=== PATIENT | male | born 1985 | race Caucasian/White ===

== ENCOUNTER → 2017-08-26 | Outpatient (CLI) | payer OTHER | END | disposition home or self-care (01) | LOC: GMA 17:50 | PROVIDERS: ATTEND Nurse Practitioner Family | DX: R00.2 Palpitations (principal) ==

== ENCOUNTER 2019-01-29 05:30 | Day surgery (SDC) | payer OTHER ==
[2019-01-29] MEDS ORDERED: KETOROLAC TROMETHAMINE INJ 30 MG/ML VIAL ONE (07:00)
[2019-01-29] MEDS ORDERED: DEXAMETHASONE INJ 10 MG/ML VIAL ONE (07:00)
[2019-01-29] MEDS ORDERED: ONDANSETRON INJ 4 MG/2 ML VIAL ONE (07:00)
[2019-01-29] MEDS ORDERED: PROPOFOL 200 MG/20 ML VIAL IV ONE (07:00)
[2019-01-29] MEDS ORDERED: LIDOCAINE 1% 10 ML VIAL INJ ONE (07:00)
[2019-01-29] MEDS ORDERED: SODIUM CHL 0.9% 50ML MIN-BAG+ 50 ML IVPB ONE (07:05)
[2019-01-29] MEDS ORDERED: ceFAZolin SODIUM 1 GM VIAL ONE (07:06)
[2019-01-29] MEDS ORDERED: LACTATED RINGERS 1,000 ML ONE (07:06)
[2019-01-29] MEDS ORDERED: fentaNYL CITRATE INJ 50 MCG/ML AMP ONE (07:54)
[2019-01-29] MEDS ORDERED: MIDAZOLAM INJ 2 MG/2 ML VIAL ONE (07:54)
[2019-01-29] MEDS ORDERED: BUPIVACAINE 0.25% W/EPI 50 ML VIAL INJ ONE (07:54)
[2019-01-29] MEDS ORDERED: LACTATED RINGERS 1,000 ML BAG IV ONE (08:10)
[2019-01-29] MEDS ORDERED: KETAMINE HCL 100 MG/ML VIAL ONE (08:39)
[2019-01-29] MEDS ORDERED: HYDROmorphone HCL INJ 2 MG/ML VIAL ONE (08:44)
[2019-01-29] MEDS ORDERED: LACTATED RINGERS 1,000 ML IVS ONE ×5 (10:02)
--- NOTE | 2019-01-29 10:25 | OP ---
DATE OF PROCEDURE: 01/29/19 PREOPERATIVE DIAGNOSIS: 1. Incisional hernia. POSTOPERATIVE DIAGNOSIS: 1. Incisional hernia. PROCEDURE: 1. Repair of incisional hernia with Surgimesh Onlay graft. SURGEON: Pravin Baez MD. SENIOR AIR DIRECTOR: None. ANESTHESIA: General laryngeal mask anesthesia and local infiltration of 0.25% Marcaine with epinephrine. 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 He has developed tenderness and a knot at his trocar site from an appendectomy just below the umbilicus. It has become uncomfortable. The patient was brought to the Surgical Suite today for repair of same after the risks, benefits and alternatives to the procedure were discussed and accepted by the patient. FINDINGS: The defect was just under 1 cm in diameter. It was irregularly shaped. It had omentum within it. No other pathology was identified. PROCEDURE: After the patient was brought to the Surgical Suite and placed in supine position, he underwent general laryngeal mask anesthesia. He was then prepped and draped in the usual sterile manner in the supine position. At this point, a surgical time-out was taken. A curvilinear incision was then fashioned under the umbilicus approximately 1 cm, first with local infiltration of anesthesia then with a sharp knife. Dissection was carried down through the subcutaneous tissue to the midline fascia, which was dissected free circumferentially. The hernia was identified just inferior to the umbilicus. After the subcutaneous fat was dissected free circumferentially from the hernia and the umbilicus, dissection was carried out at the level of the fascia, freeing the umbilicus from the fascia. The hernia tissue was dissected free and reduced below the floor of the fascia. The fascia was then reapproximated with 3 [id number] sutures of #1 PDS. These were placed and then tied sequentially. When this was done, the wound was irrigated with saline. Hemostasis was noted to be adequate. A 6.5 x 5 cm oval Surgimesh was then sutured over the repair with interrupted 6-0 Prolene and Vicryl sutures. When this was done, the umbilicus was sutured to the mesh superior to the repair with a qalnqu-ax-[id number] suture of 2-0 Prolene. When this was done, the wound was irrigated with saline. The subcutaneous tissues were approximated with 2-0 and then 3-0 Vicryl simple sutures. The skin was closed rosey. Sterile pressure dressing was applied. An abdominal binder was applied. The patient was awakened and taken to the Recovery Room in stable condition. Estimated blood loss was less than 50 mL. All sponge, needle and instrument counts were correct. #[id number] [facility]
[2019-01-29] MEDS ORDERED: HYDROcodone 7.5MG/APAP 325MG 1 EA TAB ONE (11:03)
[2019-01-29 13:21] VITALS: BP 126/74; TEMP 97.2; O2SAT 96
== END 2019-01-29 12:10 | disposition home or self-care (01) ==
LOC: AMB 05:30
PROVIDERS: ATTEND Surgery
DX: K43.2 Incisional hernia without obstruction or gangrene (principal)
CPT/HCPCS: 00832; 36415; 49560; 49568; 81001; 85025; C1781; J0690; J1100; J1170; J1885; J2250; J2405; J3010; J3490; J7050; J7120